=== PATIENT | female | born 1990 | race Caucasian/White ===

== ENCOUNTER 2024-11-24 08:28 | Emergency (ER) | payer OTHER ==
[2024-11-24 08:55] LABS: APPEARANCE,URINE SLIGHTLY CLOUDY (CLEAR); COLOR,URINE YELLOW
[2024-11-24 08:56] LABS: BILIRUBIN,URINE NEGATIVE (NEGATIVE); GLUCOSE,URINE NEGATIVE (NEGATIVE); KETONES,URINE NEGATIVE (NEGATIVE); LEUKOCYTE ESTERASE,URINE MODERATE (NEGATIVE); NITRITE,URINE NEGATIVE (NEGATIVE); OCCULT BLOOD,URINE LARGE (NEGATIVE); PROTEIN,URINE 30 mg/dL (NEGATIVE); UROBILINOGEN,URINE 0.2 E.U./dL (0.2-1.0)
[2024-11-24] MEDS: Sodium Chloride 0.9% 1,000 ML IV ONE (08:58)
[2024-11-24 09:00] LABS: SQUAMOUS EPITHELIAL CELLS,UR OCCASIONAL /HPF; WBC CLUMPS,URINE FEW /HPF; WBC,URINE 50-75 /HPF
[2024-11-24 09:13] LABS: BASOPHILS ABSOLUTE AUTO 0.04 K/uL (0.02-0.10); BASOPHILS PERCENT AUTO 0.3 % (0.0-0.5); EOSINOPHILS ABSOLUTE AUTO 0.71 K/uL (0.04-0.40); EOSINOPHILS PERCENT AUTO 5.6 % (1.0-5.0); HEMATOCRIT 43.7 % (37.0-47.0); HEMOGLOBIN 14.5 g/dL (11.5-16.5); LYMPHOCYTES ABSOLUTE AUTO 2.69 K/uL (1.50-4.00); LYMPHOCYTES PERCENT AUTO 21.3 % (20.0-40.0); MEAN CORPUSCULAR HEMOGLOBIN 29.4 pg (27.0-32.0); MEAN CORPUSCULAR HGB CONC 33.2 g/dL (31.0-35.0); MEAN CORPUSCULAR VOLUME 89 fL (76-96); MEAN PLATELET VOLUME 9.8 fL (6.0-10.0); MONOCYTES ABSOLUTE AUTO 1.03 K/uL (0.20-0.80); MONOCYTES PERCENT AUTO 8.2 % (3.0-10.0); NEUTROPHILS ABSOLUTE AUTO 8.13 K/uL (2.00-7.50); NEUTROPHILS PERCENT AUTO 64.6 % (45.0-70.0); PLATELET COUNT,PLT 253 K/uL (150-500); RED BLOOD CELL COUNT 4.93 M/uL (3.80-5.80); RED CELL DISTRIBUTION WIDTH 13.4 % (11.0-16.0); WHITE BLOOD CELL COUNT,WBC 12.6 K/uL (4.0-11.0)
[2024-11-24] MEDS: Ondansetron 4 MG/2 ML SDV IVPUSH ONE (09:21)
[2024-11-24] MEDS: cefTRIAXone 1 GM in Sodium Chloride 0.9% 50 ML IV ONE (09:25)
[2024-11-24 09:48] LABS: A/G RATIO 0.9 (0.8-2.0); ALBUMIN 3.4 g/dL (3.4-5.0); ANION GAP 8.3 mmol/L (5.0-15.0); BILIRUBIN TOTAL 0.4 mg/dL (0.0-1.0); BUN/CREATININE RATIO 12.9 (6-25); CALCIUM 9.1 mg/dL (8.5-10.1); CARBON DIOXIDE,CO2 28.9 mmol/L (21.0-32.0); CREATININE 0.93 mg/dL (0.55-1.02); EST CRCL DRUG DOSING (CG) 79.79 mL/min; POTASSIUM,K 4.2 mmol/L (3.5-5.1)
[2024-11-24] MEDS: cefTRIAXone 1 GM Vial ONE (10:21)
== END 2024-11-24 11:10 | disposition home or self-care (01) ==
LOC: LB.ED 08:28
DX: N12 Tubulo-interstitial nephritis, not specified as acute or chronic (principal); N39.0 Urinary tract infection, site not specified; Z90.710 Acquired absence of both cervix and uterus
CPT/HCPCS: 36415; 51701; 80053; 81001; 85025; 87086; 96365; 96375; 99284-25; C1758; J0696; J2405; J7030

== ENCOUNTER 2025-05-03 11:14 | Emergency (ER) | payer OTHER | END 2025-05-03 13:13 | disposition home or self-care (01) | LOC: LB.ED 11:14 | DX: N61.0 Mastitis without abscess (principal); Z79.899 Other long term (current) drug therapy | CPT/HCPCS: 99283; A9270-GY ==